=== PATIENT | male | born 1955 | race Caucasian/White ===

== ENCOUNTER 2017-02-13 06:56 | Day surgery (SDC) | payer OTHER ==
[~2017-02-13] VITALS: Ht 182.9 cm; Wt 104.8 kg
[2017-02-13] MEDS ORDERED: CEFAZOLIN SOD 1 GM/ ISO 50 ML PREMIX IV ONE (07:00)
[2017-02-13] MEDS ORDERED: SEVOFLURANE 15 MIN GAS INH ONE (09:05)
[2017-02-13] MEDS ORDERED: LR 1,000 ML IV.SOLN IV ONE (09:05)
[2017-02-13] MEDS ORDERED: fentaNYL CITRATE/PF 100 MCG/2 ML AMP IVP ONE (09:05)
[2017-02-13] MEDS ORDERED: NS IRRIG SOLN 1000 ML IR ONE (09:05)
[2017-02-13] MEDS ORDERED: MIVACURIUM CHLORIDE 20 MG/10 ML VIAL (MIVACRON) INJ ONE (09:05)
[2017-02-13] MEDS ORDERED: PROPOFOL 200MG/ 20ML VIAL (DIPRIVAN) IV ONE (09:05)
[2017-02-13] MEDS ORDERED: BUPIVACAINE /PF 0.25% 30 ML VIAL INJ ONE (09:05)
[2017-02-13] MEDS ORDERED: MIDAZOLAM HCL 5 MG/5 ML VIAL IVP ONE (09:05)
[2017-02-13] MEDS ORDERED: ONDANSETRON HCL 4 MG/2 ML VIAL IVP ONE (09:05)
[2017-02-13] MEDS ORDERED: LR 1,000 ML IV SCH (09:48)
[2017-02-13] MEDS ORDERED: D5/0.45 NS 1,000 ML IV SCH (09:58)
[2017-02-13] MEDS ORDERED: HYDROmorphone 1 MG INJ. 1 MG/ML AMPUL IVP PRN (10:00)
[2017-02-13] MEDS ORDERED: HYDROcodone/ACETAMIN 5-325 MG TAB (NORCO/ VICODIN) PO PRN ×2 (10:00)
[2017-02-13] MEDS ORDERED: METOCLOPRAMIDE HCL 10 MG/2 ML VIAL IVP PRN (10:00)
[2017-02-13] MEDS ORDERED: MORPHINE 4 MG/ML INJ. SYRINGE IVP PRN ×3 (10:00)
[2017-02-13 12:03] VITALS: BP_SYST 151
== END 2017-02-13 12:03 | disposition home or self-care (01) ==
LOC: SDS 06:56 → SMU 06:57 → SDS 12:03
PROVIDERS: ATTEND Colon & Rectal Surgery
DX: D17.0 Benign lipomatous neoplasm of skin and subcutaneous tissue of head, face and neck (principal); N40.1 Benign prostatic hyperplasia with lower urinary tract symptoms; K21.9 Gastro-esophageal reflux disease without esophagitis; K44.9 Diaphragmatic hernia without obstruction or gangrene; E78.5 Hyperlipidemia, unspecified; M15.9 Polyosteoarthritis, unspecified; Z98.890 Other specified postprocedural states; Z68.31 Body mass index [BMI] 31.0-31.9, adult; Z79.899 Other long term (current) drug therapy; I10 Essential (primary) hypertension; E66.3 Overweight
CPT/HCPCS: 21556; 88304; J0690; J2250; J2405; J2704; J3010; J3490; J7120; 88305